=== PATIENT | female | born 1965 | race Caucasian/White ===

== ENCOUNTER 2017-02-28 12:52 | Emergency (ER) | payer OTHER ==
[~2017-02-28] VITALS: Ht 162.6 cm; Wt 66.2 kg
[2017-02-28 13:22] VITALS: BP 120/73
--- NOTE | 2017-02-28 17:55 | NUR ---
PATIENT LEFT WITHOUT BEING SEEN BY DR. CHAPMAN. NO FURTHER CARE PROVIDED FOR PATIENT.
== END 2017-02-28 17:55 | disposition left against medical advice (07) ==
LOC: MED 12:52
DX: R10.13 Epigastric pain (principal); R11.10 Vomiting, unspecified; Z53.21 Procedure and treatment not carried out due to patient leaving prior to being seen by health care provider

== ENCOUNTER 2024-06-25 17:17 | Emergency (ER) | payer SELFPAY ==
[~2024-06-25] VITALS: Ht 160 cm; Wt 71.4 kg
[2024-06-25 17:30] VITALS: BP 137/73; PULSE 68; RESP 16; TEMP 98.1; O2SAT 95
[2024-06-25 18:35] VITALS: BP 122/69; PULSE 53; RESP 17
[2024-06-25 18:41] LABS: BASOPHILS % (AUTO) 0.4 % (0.0-2.0); EOSINOPHILS # (AUTO) 0.1 K/uL (0-0.4); EOSINOPHILS % (AUTO) 1.8 % (0.0-4.0); HEMATOCRIT 43.4 % (36-48); HEMOGLOBIN 14.7 g/dL (12.0-16.0); LYMPHOCYTES # (AUTO) 2.9 K/uL (2.5-16.5); LYMPHOCYTES % (AUTO) 35.4 % (20.5-51.1); MEAN CORPUSCULAR HEMOGLOBIN 30 pg (27-31); MEAN CORPUSCULAR HGB CONC 34 g/dL (33-37); MEAN CORPUSCULAR VOLUME 87.2 fL (80-94); MONOCYTES # (AUTO) 0.6 K/uL (0.8-1.0); MONOCYTES % (AUTO) 7.4 % (1.7-9.3); NEUTROPHILS # (AUTO) 4.5 K/uL (1.8-7.7); PLATELET COUNT (AUTO) 202 K/uL (140-450); RED BLOOD CELL COUNT(AUTO) 4.98 MIL/uL (4.20-5.40); RED CELL DISTRIBUTION WIDTH 13.1 % (11.6-13.7); WHITE BLOOD COUNT (AUTO) 8.2 K/uL (4.8-10.8)
[2024-06-25 18:54] LABS: ALBUMIN 3.5 g/dL (3.4-5.0); ANION GAP 8.9 (8-16); CALCIUM 9.2 mg/dL (8.5-10.1); CARBON DIOXIDE 29.8 mmol/L (21-32); CREATININE 0.7 mg/dL (0.6-1.3); MAGNESIUM 1.9 mg/dL (1.8-2.4); POTASSIUM 3.7 mmol/L (3.5-5.1); TOTAL BILIRUBIN 0.2 mg/dL (0.0-1.0)
[2024-06-25 20:00] VITALS: O2SAT 97
[2024-06-25] MEDS ORDERED: KETOROLAC 30 MG/ML VIAL IVP ONE (20:15)
[2024-06-25] MEDS: KETOROLAC 30 MG/ML VIAL IM ONE (21:23)
== END 2024-06-25 21:21 | disposition home or self-care (01) ==
LOC: MED 17:17
DX: R20.2 Paresthesia of skin (principal); R20.0 Anesthesia of skin; R51.9 Headache, unspecified
CPT/HCPCS: 36415; 70450; 80053; 82948; 83735; 85025; 93005; 96372; 99285; J1885

== ENCOUNTER 2024-06-27 19:55 | Emergency (ER) | payer SELFPAY ==
[~2024-06-27] VITALS: Ht 160 cm; Wt 71.2 kg
[2024-06-27 19:58] VITALS: BP 147/72; PULSE 68; RESP 14; TEMP 99.2; O2SAT 99
== END 2024-06-27 21:44 | disposition left against medical advice (07) ==
LOC: MED 19:55
DX: R11.0 Nausea (principal); R20.0 Anesthesia of skin; Z87.442 Personal history of urinary calculi; Z53.21 Procedure and treatment not carried out due to patient leaving prior to being seen by health care provider
CPT/HCPCS: 93005